=== PATIENT | female | born 1960 | race Caucasian/White ===

== ENCOUNTER → 2017-04-27 | Outpatient (CLI) | payer OTHER ==
--- NOTE | 2017-04-29 10:50 | MM ---
Reason for exam: screening (asymptomatic). History: Patient is postmenopausal. Physical Findings: A clinical breast exam by your physician is recommended on an annual basis and results should be correlated with mammographic findings. MG Screening Mammo w CAD Bilateral CC and MLO view(s) were taken. No prior studies available for comparison. Extensively greater in the right breast regional and possibly segmental calcifications are present. Magnification views can assess morphology of the calcifications. Asymmetric density also present central anterior right breast on the CC view. ASSESSMENT: Incomplete: need additional imaging evaluation, BI-RAD 0 RECOMMENDATION: Special view mammogram of both breasts. If lesion persists on supplemental views, image directed ultrasound is recommended. [facility] will attempt to contact patient to return for supplemental views and ultrasound if indicated.
== END | disposition home or self-care (01) ==
LOC: RADMAMWWP 10:48
PROVIDERS: ATTEND Family Medicine
DX: Z12.31 Encounter for screening mammogram for malignant neoplasm of breast (principal)
CPT/HCPCS: 87070

== ENCOUNTER → 2017-04-27 | Outpatient (CLI) | payer OTHER | END | disposition home or self-care (01) | LOC: LABPAT 10:46 | PROVIDERS: ATTEND Orthopaedic Surgery | DX: Z01.812 Encounter for preprocedural laboratory examination (principal); M16.12 Unilateral primary osteoarthritis, left hip | CPT/HCPCS: 87070 ==

== ENCOUNTER 2017-05-06 05:54 | Inpatient (IN) | payer OTHER ==
[2017-04-25 13:38] VITALS: BMI 32.8
--- NOTE | 2017-05-05 12:15 | HP ---
HISTORY AND PHYSICAL Surgery is 05/06/2017 Mary Miner is a 56-year-old patient seen with progressive left hip pain consistent with symptomatic advanced osteoarthritis. After treatment options were discussed with her she elected to proceed with left total hip arthroplasty. Consent was obtained. Medical clearance was provided by Dr. Ca. PAST MEDICAL HISTORY: Depression. PAST SURGICAL HISTORY: section. DAILY MEDICATIONS: Aleve, Wellbutrin, multiple [id number] vitamins. ALLERGIES: ERYTHROMYCIN, CLINDAMYCIN. CLARITHROMYCIN. SOCIAL HISTORY: Patient denies tobacco use. PHYSICAL EVALUATION OF THE LEFT HIP: There is limited range of motion with significant pain. There is positive hip impingement sign. Diffuse tenderness about the hip girdle. Straight leg raise is negative. Distal neurovascular exam is intact. Left hip radiographs revealed severe osteoarthritic changes. IMPRESSION: Left hip osteoarthritis. PLAN: Direct anterior left total hip arthroplasty. MMODL / IJN: [id number] /
[~2017-05-06 05:54] MED LIST: ACETAMINOPHEN TAB 500 MG TAB PO ONE; MELOXICAM 7.5 MG TAB PO ONE; TRANEXAMIC ACID 1,000 MG in SODIUM CHLORIDE 0.9% 100 ML IVPB ONE; ceFAZolin 2 GM in SODIUM CHLORIDE 0.9% 100 ML IVPB ONE
[2017-05-06] MEDS ORDERED: LIDOCAINE 1% 20 ML VIAL (10MG/ML) FOR IV START INTRADERMA PRN (05:56)
[2017-05-06] MEDS ORDERED: HYDROmorphone 0.5 MG/0.5 ML SYRINGE IVP PRN ×2 (05:56→09:59)
[2017-05-06] MEDS ORDERED: ONDANSETRON 4 MG/2 ML VIAL IVP ONE (05:56)
[2017-05-06] MEDS: LACTATED RINGERS 1,000 ML IV SCH ×4 (06:49→21:44)
[2017-05-06] MEDS ORDERED: ROPIVACAINE 246.25 MG, EPINEPHrine 0.5 MG, KETOROLAC 30 MG, cloNIDine HCL/PF 80 MCG, WA... MISCELLANE ONE ×5 (07:25)
[2017-05-06] MEDS ORDERED: MIDAZOLAM 2 MG/2 ML VIAL ONE (07:33)
[2017-05-06] MEDS ORDERED: TRANEXAMIC ACID 1,000 MG/10 ML VIAL ONE (07:33)
[2017-05-06] MEDS ORDERED: LIDOCAINE 1% INJ 10MG/ML (20 ML MDV) ONE (07:33)
[2017-05-06] MEDS ORDERED: ePHEDrine 50 MG/ML 1 ML AMP ONE (07:33)
[2017-05-06] MEDS ORDERED: fentaNYL (PF) 50 MCG/ML 2 ML AMP ONE (07:33)
[2017-05-06] MEDS ORDERED: PROPOFOL 10 MG/ML 20 ML VIAL IV ONE (07:33)
[2017-05-06] MEDS ORDERED: SODIUM CHLORIDE 0.9% 100 ML BAG ONE (07:33)
[2017-05-06] MEDS ORDERED: ROPIVACAINE 5 MG/ML 30 ML VIAL MISCELLANE ONE (08:17)
[2017-05-06] MEDS ORDERED: LACTATED RINGERS 1,000 ML IV ONE (09:20)
--- NOTE | 2017-05-06 09:51 | FL ---
EXAMINATION TYPE: FL guidance operating room, XR Hip Limited LT DATE OF EXAM: 05/06/2017 Findings: Single image shows left hip total arthroplasty. FLUOROSCOPY Fluoroscopy time of 13 seconds was used during anterior left hip replacement. 1 image/s document/s t he procedure. IMPRESSION: Intraoperative fluoroscopy for left hip total arthroplasty.
--- NOTE | 2017-05-06 09:58 | P.OP ---
Date of Procedure: 05/06/17 Preoperative Diagnosis: Left hip osteoarthritis Postoperative Diagnosis: Left hip osteoarthritis Procedure(s) Performed: Direct anterior left total hip arthroplasty Implants: 1. Depuy Corail press-fit femoral stem K a size 12 standard collar 2. Depuy pinnacle press-fit acetabular shell 54 mm 3. Depuy pinnacle polyethylene acetabular liner neutral 36 mm ID 54 mm OD 4. Biolox delta ceramic femoral head +1.5 36 mm Anesthesia: local, spinal Surgeon: Delmar Calles Orthopedic Shoe Maker #1: Hernán Dunham Estimated Blood Loss (ml): 400 Pathology: none sent (Femoral head) Condition: stable Disposition: PACU Indications for Procedure: 56-year-old patient seen with progressive left hip pain. After treatment options were discussed, she elected to proceed with direct anterior left total hip arthroplasty. Operative Findings: See description of procedure Description of Procedure: The patient was taken to the operative suite. Patient underwent a spinal anesthetic by the department of anesthesia. Patient was then transferred to the [place] table. Patient was given preoperative IV antibiotics and TXA. Both lower extremities were placed in standard leg spars. The hip was then prepped and draped in the normal sterile orthopedic fashion. A standard anterior incision was made beginning 3 cm lateral and 1 cm distal to the ASIS extending 10 cm. Dissection was then carried down through the subcutaneous soft tissues down to the fascia overlying the tensor fascia renay. An incision was now made through the fascia. Careful dissection was taken down exposing the tensor fascia renay muscle. A Cobra retractor was now placed along the medial femoral neck and a second one along the lateral femoral neck. The venous circumflex vessels were now identified, cauterized and clipped. We identified the anterior hip capsule. An incision was made through the hip capsule along the lateral border. Tag sutures were then placed along the anterior capsule and lateral capsule. We then performed a capsulotomy. Retractors were now placed around the femoral neck itself. A Cobra retractor was now placed along the anterior acetabulum. Good exposure was now noted of the femoral head/neck complex. Residual labrum was debrided out. We placed the extremity into 3 turns of fine traction. We were then able to introduce a skid in between the femoral head and acetabulum. A placed a awl into the femoral head. We took 2 turns of traction off the extremity. Rotation was now released. The femoral head was then dislocated without difficulty. Additional releasing was performed of the capsule. The head was then reduced. All traction was released. A femoral neck cut was now made with a sagittal saw. It was completed with an osteotome at the lateral neck area. The femoral head was now removed without difficulty. The extremity was now rotated to 60 of external rotation. It was locked in position. Residual labrum was now debrided out. Serial reaming was performed of the acetabulum. Once we reached the appropriate size and a trial was position and fit nicely. The appropriate size was now chosen opened and made available. It was introduced into the acetabulum without difficulty. The C-arm/fluoroscopy was now brought into the operative field. The wound was irrigated with pulse lavage mechanical irrigation We made sure we had a true AP pelvic view. We now under direct C-arm /fluoroscopy introduced into the acetabular component with appropriate version and inclination. It was well seated and stable. The C-arm was pulled back. An appropriate liner was introduced and clicked into position. It was felt to be stable. At this point retractors were removed. The extremity was now placed into 120 external rotation with no traction. The leg was now dropped to the ground and adducted. Appropriate retractors were now positioned along the proximal femur. We also placed our femoral look into position. Additional capsular releasing was performed to gain access to the proximal femur. We now used a box osteotome. A canal finder was now utilized. Serial broaching was now performed until we reached the appropriate size with good overall rotational stability. Appropriate calcar planing was performed. A trial head/ neck was placed into position. The hip was now reduced. The C-arm/fluoroscopy was brought back into the operative field. A spot film was obtained of the nonoperative hip. A spot film was obtained of the trial components. Overlays were performed, we noted good overall alignment and positioning for determining leg length. The C-arm/fluoroscopy was pulled back. Retractors were repositioned and the hip was dislocated. The leg was again taken down to the ground and adducted. Appropriate retractors were repositioned as well as the femoral hook. All trial components were removed. The femoral implant was opened along with the femoral head. The wound was irrigated with pulse lavage mechanical irrigation. The deep soft tissues were infiltrated local analgesic. The femoral implant was introduced with good purchase and fixation noted. The femoral head was introduced with good positioning and fixation noted. Retractors were now removed. The hip was now reduced. There appeared be good positioning of the hip. A spot film was obtained intraoperatively to document the procedure. The wound was irrigated with pulse lavage mechanical irrigation. The superficial soft tissues were infiltrated local analgesic. Bipolar cautery had been utilized intermittently through the procedure for hemostasis. The wound was irrigated copiously with pulse lavage mechanical irrigation. The fascia was repaired with Vicryl suture. The subcutaneous soft tissues were repaired in layers with Vicryl suture. The skin was approximated with pernio/Dermabond. Sterile dressings were applied. Patient was then awakened, transferred to a bed and taken to recovery in stable condition. Anuj WATSON assisted with the procedure.
[2017-05-06] MEDS ORDERED: NALOXONE 0.4 MG/ML 1 ML VIAL IV PRN (09:59)
[2017-05-06] MEDS ORDERED: ONDANSETRON 4 MG/2 ML VIAL IVP PRN (09:59)
[2017-05-06] MEDS ORDERED: HYDROcodone/APAP 7.5-325MG 1 EACH TAB PO PRN (09:59)
[2017-05-06] MEDS ORDERED: HYDROmorphone 1 MG/ML 1 ML SYRINGE IVP PRN (09:59)
[2017-05-06] MEDS: HYDROcodone/APAP 7.5-325MG 1 EACH TAB PO PRN ×2 (12:40→17:48)
[2017-05-06] MEDS: HYDROmorphone 0.5 MG/0.5 ML SYRINGE IVP PRN ×2 (14:38→22:42)
--- NOTE | 2017-05-06 14:46 | P.CONS ---
History of Present Illness - Reason for Consult Consult date: 05/06/17 Medical management Requesting physician: Delmar Calles - Chief Complaint Status post left total hip arthroplasty - History of Present Illness This is a 56-year-old female, patient of [facility]. She has a known past medical history of depression and osteoarthritis. She underwent direct anterior left total hip arthroplasty today. Patient tolerated surgery well with no complications. Estimated blood loss 400 mL. Patient reports that pain is not fully controlled. Patient reporting that her pain is still between a 5 and 6 out of 10 after receiving the pain pill. Patient is receiving an IV dose of Dilaudid now. She's also complaining of muscle spasming was near her incision site. Valium will be ordered. Patient denies any chest pain or shortness of breath. Denies any nausea or vomiting. Denies any bowel movement changes or urinary symptoms. We have been consulted for medical management. Review of Systems Please refer to HPI otherwise unremarkable Past Medical History Past Medical History: Osteoarthritis (OA), Sleep Apnea/CPAP/BIPAP Additional Past Medical History / Comment(s): VERTIGO, SLEEP APNEA (NO MACHINE) , TOE NAIL FUNGUS RESOLVING. History of Any Multi-Drug Resistant Organisms: None Reported Past Surgical History: Section Additional Past Surgical History / Comment(s): LIPOMA REMOVED Past Anesthesia/Blood Transfusion Reactions: No Reported Reaction Additional Past Anesthesia/Blood Transfusion Reaction / Comm: PT ADOPTED-UNSURE OF FAMILY HX. Past Psychological History: Depression Smoking Status: Former smoker Past Alcohol Use History: None Reported Additional Past Alcohol Use History / Comment(s): QUIT SMOKING AUG 1996. SMOKED FOR 20 YEARS , 1/2 PPD. Past Drug Use History: None Reported - Past Family History Mother Family Medical History: Unable to Obtain Additional Family Medical History / Comment(s): ADOPTED Medications and Allergies Home Medications Medication Instructions Recorded Confirmed Type Ascorbic Acid [Vitamin C] 1,000 mg PO HS 04/25/17 05/06/17 History Biotin 5,000 mcg PO DAILY 04/25/17 05/06/17 History Cholecalciferol [Vitamin D3] 5,000 unit PO HS 04/25/17 05/06/17 History Cyanocobalamin (Vitamin B-12) 3,000 mcg PO DAILY 04/25/17 05/06/17 History [Vitamin B-12] FLUoxetine HCL [PROzac] 10 mg PO DAILY 04/25/17 05/06/17 History Ferrous Sulfate [Feosol] 325 mg PO HS 04/25/17 05/06/17 History Fish Oil/Dha/Epa [Fish Oil 1,200 1 cap PO DAILY 04/25/17 05/06/17 History mg Fish Oil] Fluticasone Nasal Morrison [Flonase 1 spray EA NOSTRIL BID 04/25/17 05/06/17 History Nasal Morrison] Magnesium 400 mg PO HS 04/25/17 05/06/17 History Multivit with Calcium,Iron,Min 1 tab PO DAILY 04/25/17 05/06/17 History [Women's Multivitamin] Naproxen Sodium [Aleve] 440 mg PO BID PRN 04/25/17 05/06/17 History Terbinafine HCl [LamISIL] 250 mg PO DAILY@1900 04/25/17 05/06/17 History buPROPion HCL [buPROPion HCL SR] 150 mg PO BID 04/25/17 05/06/17 History traZODone HCL 50 mg PO HS 04/25/17 05/06/17 History Allergies Allergy/AdvReac Type Severity Reaction Status Date / Time clindamycin Allergy Severe Rash/Hives, Verified 05/06/17 10:18 Swelling, Itching erythromycin base Allergy Severe Rash/Hives, Verified 05/06/17 10:18 swelling, itching mycin antibiotics Allergy Unknown Rash/Hives, Uncoded 05/06/17 06:14 Swelling, Itching Physical Exam Vitals: Vital Signs Temp Pulse Pulse Pulse Resp BP BP 05/06/17 13:45 66 114/60 05/06/17 13:15 80 120/69 05/06/17 12:45 76 97/61 05/06/17 12:30 67 102/57 05/06/17 12:15 64 105/55 05/06/17 12:00 60 104/57 05/06/17 11:45 97.5 F L 67 16 105/59 05/06/17 10:59 64 16 112/60 05/06/17 10:44 62 16 114/61 05/06/17 10:29 60 16 122/59 05/06/17 10:14 97.4 F L 64 16 125/56 05/06/17 06:36 98.2 F 76 18 146/77 Pulse Ox 05/06/17 13:45 05/06/17 13:15 05/06/17 12:45 05/06/17 12:30 05/06/17 12:15 05/06/17 12:00 05/06/17 11:45 99 05/06/17 10:59 98 05/06/17 10:44 99 05/06/17 10:29 99 05/06/17 10:14 98 05/06/17 06:36 94 L Intake and Output 05/05/17 05/06/17 05/06/17 22:59 06:59 14:59 Intake Total 1950 Output Total 600 Balance 1350 Intake: IV 1950 Output: Urine 200 Estimated Blood Loss 400 Other: Voiding Method Indwelling Catheter Weight 89.358 kg Patient Weight 05/07/17 06:59 Weight 89.358 kg Head normocephalic Neck supple Lungs clear to auscultation bilaterally no wheezing or crackles Heart regular rate and rhythm S1-S2, no rub or gallop Abdomen is soft nontender nondistended positive bowel sounds no hepatosplenomegaly Extremities no edema. Dressing is clean dry and intact. Patient is able to wiggle her toes. No numbness noted per patient Neuro alert and orientated to 3 Assessment and Plan Plan: 1. Left hip osteoarthritis: Status post direct anterior left total hip arthroplasty. Estimated blood loss 400 mL. Continue pain medication per orthopedic protocol. We will add Valium 2 mg by mouth twice a day as needed for muscle spasming. Continue the Lovenox for DVT prophylaxis 2. History of depression continue the Wellbutrin and trazodone 3. Former history of smoking GI prophylaxis Pepcid and DVT prophylaxis Lovenox Thank you for this consultation we will continue to follow along with you Time with Patient: Greater than 30 (Greater than 50% of the total time spent in counseling and coordination of care.I performed an examination of the patient and discussed their management with the physician School Transportation Director. I have reviewed the Physician School Transportation Director's notes and agree with the documented findings and plan of care)
[2017-05-06] MEDS: traMADol 50 MG TAB PO SCH ×3 (16:33→21:10)
[2017-05-06] MEDS: ceFAZolin 2 GM in SODIUM CHLORIDE 0.9% 100 ML IVPB SCH ×2 (17:01→22:42)
[2017-05-06] MEDS: hydrOXYzine PAMOATE 25 MG CAP PO PRN (17:48)
[2017-05-06] MEDS: DIAZEPAM 2 MG TAB PO PRN (19:16)
[2017-05-06] MEDS: SENNOSIDES-DOCUSATE SODIUM 1 EACH TAB PO SCH (20:21)
[2017-05-06] MEDS: MAGNESIUM OXIDE 400 MG TAB PO SCH (20:22)
[2017-05-06] MEDS: TERBINAFINE 250 MG TAB PO SCH (20:22)
[2017-05-06] MEDS: ASCORBIC ACID 500 MG TAB PO SCH (20:22)
[2017-05-06] MEDS: traZODone HCL 50 MG TAB PO SCH (20:22)
[2017-05-06] MEDS: FLUTICASONE 50MCG/SPRAY NASAL 16GM EA NOSTRIL SCH (20:23)
[2017-05-06] MEDS: CHOLECALCIFEROL 1,000 UNIT TAB PO SCH (20:23)
[2017-05-06] MEDS: buPROPion SR 150 MG TABLET.ER PO SCH (20:23)
[2017-05-06] MEDS ORDERED: FERROUS SULFATE 325 MG TAB PO SCH (21:00)
[2017-05-07] MEDS: hydrOXYzine PAMOATE 25 MG CAP PO PRN ×2 (04:51→10:21)
[2017-05-07] MEDS: HYDROcodone/APAP 7.5-325MG 1 EACH TAB PO PRN ×3 (04:51→15:51)
[2017-05-07] MEDS: LACTATED RINGERS 1,000 ML IV SCH ×2 (05:44→05:45)
[2017-05-07 08:08] LABS: Basophils % (A) 0 %; CH 29.4; CHCM 31.5; Eosinophils % (A) 0 %; HCT 30.6 % (34.0-46.0); HDW 2.27; HGB 9.4 gm/dL (11.4-16.0); Luc # (Auto) 0.09; Luc % (Auto) 1; Lymphocytes # (A) 0.7 k/uL (1.0-4.8); Lymphocytes % (A) 9 %; MCH 28.9 pg (25.0-35.0); MCHC 30.9 g/dL (31.0-37.0); MCV 93.7 fL (80.0-100.0); Mean Platelet Volume 7.4; Monocytes # (A) 0.4 k/uL (0-1.0); Monocytes % (A) 6 %; Neutrophils # (A) 6.2 k/uL (1.3-7.7); Neutrophils % (A) 84 %; RBC 3.27 m/uL (3.80-5.40); WBC 7.4 k/uL (3.8-10.6); WBC (Perox) 7.74
[2017-05-07 08:13] LABS: ALT 35 U/L (9-52); AST 46 U/L (14-36); Alkaline Phosphatase 83 U/L (38-126); Anion Gap 5 mmol/L; Blood Urea Nitrogen 11 mg/dL (7-17); Calcium 8.1 mg/dL (8.4-10.2); Carbon Dioxide 23 mmol/L (22-30); Chloride 108 mmol/L (98-107); Glucose 104 mg/dL (74-99); Non-African American GFR(MDRD) >60 (>60 ml/min/1.73 sqM); Potassium 4.5 mmol/L (3.5-5.1); Sodium 136 mmol/L (137-145); Total Bilirubin 0.2 mg/dL (0.2-1.3); Total Protein 5.4 g/dL (6.3-8.2)
[2017-05-07] MEDS: traMADol 50 MG TAB PO SCH ×4 (08:31→21:44)
[2017-05-07] MEDS: MELOXICAM 7.5 MG TAB PO SCH (08:32)
[2017-05-07] MEDS: buPROPion SR 150 MG TABLET.ER PO SCH ×2 (08:32→21:44)
[2017-05-07] MEDS: ENOXAPARIN 40 MG/0.4 ML SYRINGE SQ SCH (08:32)
[2017-05-07] MEDS: FAMOTIDINE 20 MG TAB PO SCH (08:33)
[2017-05-07] MEDS: CYANOCOBALAMIN 500 MCG TAB PO SCH (08:33)
[2017-05-07] MEDS: FLUoxetine HCL 10 MG CAP PO SCH (08:33)
[2017-05-07] MEDS: MULTIVITAMINS, THERA 1 EACH TAB PO SCH (08:33)
[2017-05-07] MEDS ORDERED: NON-FORMULARY DRUG (Fish Oil/Dha/Epa [Fish Oil 1,200 Mg Fish Oil] 1 CAP) PO SCH (09:00)
[2017-05-07] MEDS ORDERED: NON-FORMULARY DRUG (Biotin [Biotin] 5,000 MCG) PO SCH (09:00)
[2017-05-07] MEDS: FLUTICASONE 50MCG/SPRAY NASAL 16GM EA NOSTRIL SCH ×2 (10:13→21:47)
--- NOTE | 2017-05-07 11:10 | P.PN ---
Subjective Progress Note Date: 05/07/17 This is a 56-year-old female, patient of [facility]. She has a known past medical history of depression and osteoarthritis. She underwent direct anterior left total hip arthroplasty today. Patient tolerated surgery well with no complications. Estimated blood loss 400 mL. Patient reports that pain is not fully controlled. Patient reporting that her pain is still between a 5 and 6 out of 10 after receiving the pain pill. Patient is receiving an IV dose of Dilaudid now. She's also complaining of muscle spasming was near her incision site. Valium will be ordered. Patient denies any chest pain or shortness of breath. Denies any nausea or vomiting. Denies any bowel movement changes or urinary symptoms. We have been consulted for medical management. 05/07/2017 patient sitting in bedside chair. Still having some issues with pain. Pain medication is being adjusted. Muscle spasming has improved. Did not have much improvement with the Valium. Her hemoglobin is down to 9.4 hemoglobin postop was 12.5 and that was on 04/22/2017. Patient denies any chest pain or shortness of breath. Denies any nausea or vomiting. Denies any difficulty with urinating. Catheter was removed this morning. She is passing gas no bowel movement yet. Anticipating discharge either later today or tomorrow Objective - Vital Signs Vital signs: Vital Signs Temp 99.1 F 05/07/17 07:00 Pulse 95 05/07/17 07:00 Resp 16 05/07/17 07:00 BP 91/51 05/07/17 07:00 Pulse Ox 94 L 05/07/17 07:00 Intake & Output 05/06/17 05/07/17 05/07/17 18:59 06:59 18:59 Intake Total 1950 1600 Output Total 1000 1400 Balance 950 200 Weight 89.358 kg Intake: IV 1950 Intake, IV Titration 1600 Amount Lactated Ringers 1,000 ml 1600 @ 100 mls/hr IV .Q10H SAROJ Rx#:[id number] Output: Urine 600 1400 Uretheral (Massey) 1400 Estimated Blood Loss 400 Other: Voiding Method Indwelling Catheter - Exam Head normocephalic Neck supple Lungs clear to auscultation bilaterally no wheezing or crackles Heart regular rate and rhythm S1-S2, no rub or gallop Abdomen is soft nontender nondistended positive bowel sounds no hepatosplenomegaly Extremities no edema Neuro alert and orientated to 3 - Labs CBC & Chem 7: 05/07/17 07:06 05/07/17 07:06 Labs: Abnormal Lab Results - Last 24 Hours (Table) 05/07/17 05/07/17 Range/Units 07:06 07:06 RBC 3.27 L (3.80-5.40) m/uL Hgb 9.4 L (11.4-16.0) gm/dL Hct 30.6 L (34.0-46.0) % MCHC 30.9 L (31.0-37.0) g/dL Lymphocytes # 0.7 L (1.0-4.8) k/uL Sodium 136 L (137-145) mmol/L Chloride 108 H (98-107) mmol/L Glucose 104 H (74-99) mg/dL Calcium 8.1 L (8.4-10.2) mg/dL AST 46 H (14-36) U/L Total Protein 5.4 L (6.3-8.2) g/dL Albumin 2.8 L (3.5-5.0) g/dL Assessment and Plan Plan: 1. Left hip osteoarthritis: Status post direct anterior left total hip arthroplasty. Estimated blood loss 400 mL. Continue pain medication per orthopedic protocol. We will add Valium 2 mg by mouth twice a day as needed for muscle spasming. Continue the Lovenox for DVT prophylaxis 2. History of depression continue the Wellbutrin and trazodone 3. Former history of smoking 4. Acute blood loss anemia expected after surgery. Estimated blood loss was 400 mL. We'll increase patient's iron to 325 mg twice a day. Repeat CBC in a.m. GI prophylaxis Pepcid and DVT prophylaxis Lovenox I performed an examination of the patient and discussed their management with the physician Executive Director [employer]. I have reviewed the Physician Executive Director [employer]'s notes and agree with the documented findings and plan of care
[2017-05-07] MEDS: DIAZEPAM 2 MG TAB PO PRN (11:45)
--- NOTE | 2017-05-07 14:10 | P.PN ---
Subjective Progress Note Date: 05/07/17 Principal diagnosis: Status post left total hip arthroplasty Patient is seen today resting in her hospital bed. She is having some increasing pain in the hip, she also is very tired today. She was able to ambulate minimally with therapy. She denies any headaches, chest pain, shortness of breath, or chills. Objective - Vital Signs Vital signs: Vital Signs Temp 99.1 F 05/07/17 07:00 Pulse 95 05/07/17 07:00 Resp 16 05/07/17 07:00 BP 91/51 05/07/17 07:00 Pulse Ox 94 L 05/07/17 07:00 Intake & Output 05/06/17 05/07/17 05/07/17 18:59 06:59 18:59 Intake Total 1950 1600 Output Total 1000 1400 Balance 950 200 Weight 89.358 kg Intake: IV 1950 Intake, IV Titration 1600 Amount Lactated Ringers 1,000 ml 1600 @ 100 mls/hr IV .Q10H SAROJ Rx#:[id number] Output: Urine 600 1400 Uretheral (Massey) 1400 Estimated Blood Loss 400 Other: Voiding Method Indwelling Catheter - Exam Left lower extremity: Incision is clean, dry, and intact. The prineo tape is in good condition. There is minimal soft tissue swelling and ecchymosis surrounding the medial and lateral aspects of the incision. Calf is soft, no tenderness with palpation. Plantar flexion, dorsiflexion, EHL, FHL are intact. Sensory exam to light touch throughout the extremity is intact, dorsal pedis pulses 2+. - Labs CBC & Chem 7: 05/07/17 07:06 05/07/17 07:06 Labs: Abnormal Lab Results - Last 24 Hours (Table) 05/07/17 05/07/17 Range/Units 07:06 07:06 RBC 3.27 L (3.80-5.40) m/uL Hgb 9.4 L (11.4-16.0) gm/dL Hct 30.6 L (34.0-46.0) % MCHC 30.9 L (31.0-37.0) g/dL Lymphocytes # 0.7 L (1.0-4.8) k/uL Sodium 136 L (137-145) mmol/L Chloride 108 H (98-107) mmol/L Glucose 104 H (74-99) mg/dL Calcium 8.1 L (8.4-10.2) mg/dL AST 46 H (14-36) U/L Total Protein 5.4 L (6.3-8.2) g/dL Albumin 2.8 L (3.5-5.0) g/dL Assessment and Plan Plan: Assessment: 1. Postop day #1 status post left total hip arthroplasty X Plan: 1. Pain control, continue use of oral medication 2. Continue work with therapy 3. Daily dressing changes/ice hip region 4. Medical recommendations 5. GI and DVT prophylaxis, continue subcu medication 6. Discharge planning: Patient likely to be discharged home tomorrow Time with Patient: Less than 30
[2017-05-07] MEDS: traZODone HCL 50 MG TAB PO SCH (21:44)
[2017-05-07] MEDS: SENNOSIDES-DOCUSATE SODIUM 1 EACH TAB PO SCH (21:44)
[2017-05-07] MEDS: TERBINAFINE 250 MG TAB PO SCH (21:44)
[2017-05-07] MEDS: ASCORBIC ACID 500 MG TAB PO SCH (21:47)
[2017-05-07] MEDS: MAGNESIUM OXIDE 400 MG TAB PO SCH (21:47)
[2017-05-07] MEDS: FERROUS SULFATE 325 MG TAB PO SCH (21:47)
[2017-05-07] MEDS: CHOLECALCIFEROL 1,000 UNIT TAB PO SCH (21:47)
[2017-05-08 07:19] LABS: Basophils % (A) 0 %; CH 29.3; CHCM 31.6; Eosinophils % (A) 0 %; HCT 29.8 % (34.0-46.0); HDW 2.29; HGB 9.3 gm/dL (11.4-16.0); Luc # (Auto) 0.17; Luc % (Auto) 2; Lymphocytes # (A) 1.1 k/uL (1.0-4.8); Lymphocytes % (A) 13 %; MCH 29.1 pg (25.0-35.0); MCHC 31.3 g/dL (31.0-37.0); MCV 93.2 fL (80.0-100.0); Mean Platelet Volume 7.3; Monocytes # (A) 0.6 k/uL (0-1.0); Monocytes % (A) 7 %; Neutrophils # (A) 6.6 k/uL (1.3-7.7); Neutrophils % (A) 77 %; RDW 11.9 % (11.5-15.5); WBC 8.6 k/uL (3.8-10.6); WBC (Perox) 8.86
[2017-05-08 07:25] LABS: ALT 51 U/L (9-52); AST 64 U/L (14-36); Alkaline Phosphatase 92 U/L (38-126); Anion Gap 7 mmol/L; Blood Urea Nitrogen 9 mg/dL (7-17); Calcium 8.3 mg/dL (8.4-10.2); Carbon Dioxide 26 mmol/L (22-30); Chloride 105 mmol/L (98-107); Glucose 94 mg/dL (74-99); Non-African American GFR(MDRD) >60 (>60 ml/min/1.73 sqM); Potassium 3.9 mmol/L (3.5-5.1); Sodium 138 mmol/L (137-145); Total Bilirubin 0.3 mg/dL (0.2-1.3); Total Protein 5.6 g/dL (6.3-8.2)
[2017-05-08] MEDS: HYDROcodone/APAP 7.5-325MG 1 EACH TAB PO PRN ×2 (07:55→14:29)
[2017-05-08] MEDS: traMADol 50 MG TAB PO SCH (08:59)
[2017-05-08] MEDS: ENOXAPARIN 40 MG/0.4 ML SYRINGE SQ SCH (08:59)
[2017-05-08] MEDS: buPROPion SR 150 MG TABLET.ER PO SCH (08:59)
[2017-05-08] MEDS: FERROUS SULFATE 325 MG TAB PO SCH (09:00)
[2017-05-08] MEDS: MELOXICAM 7.5 MG TAB PO SCH (09:00)
[2017-05-08] MEDS: FAMOTIDINE 20 MG TAB PO SCH (09:00)
[2017-05-08] MEDS: CYANOCOBALAMIN 500 MCG TAB PO SCH (09:01)
[2017-05-08] MEDS: MULTIVITAMINS, THERA 1 EACH TAB PO SCH (09:01)
[2017-05-08] MEDS: FLUTICASONE 50MCG/SPRAY NASAL 16GM EA NOSTRIL SCH (09:01)
[2017-05-08 09:56] VITALS: BP 119/74; PULSE 92; RESP 18; TEMP 98.3
[2017-05-08] MEDS: FLUoxetine HCL 10 MG CAP PO SCH (10:34)
== END 2017-05-08 14:49 | disposition home health service (06) | DRG 470 ==
LOC: 2ORMAIN 05:54 → 3SUR 10:11
PROVIDERS: ADMIT Orthopaedic Surgery; ATTEND Orthopaedic Surgery
PROC: 0SRB04A Replacement of Left Hip Joint with Ceramic on Polyethylene Synthetic Substitute, Uncemented, Open Approach (ICD-10-PCS; principal; 2017-05-06 07:30)
DX: M16.12 Unilateral primary osteoarthritis, left hip (principal); D62 Acute posthemorrhagic anemia; F32.9 Major depressive disorder, single episode, unspecified; G47.30 Sleep apnea, unspecified; Z79.899 Other long term (current) drug therapy; Z87.891 Personal history of nicotine dependence; Z88.1 Allergy status to other antibiotic agents; Z79.51 Long term (current) use of inhaled steroids
CPT/HCPCS: 36415; 73501; 80053; 85025; 86850; 86900; 86901; 88300

== ENCOUNTER → 2018-01-10 | Outpatient (CLI) | payer OTHER ==
[2018-01-10 14:49] LABS: Basophils % (A) 1 %; Eosinophils # (A) 0.2 k/uL (0-0.7); Eosinophils % (A) 4 %; HCT 41.5 % (34.0-46.0); HGB 13.7 gm/dL (11.4-16.0); Lymphocytes # (A) 1.5 k/uL (1.0-4.8); Lymphocytes % (A) 28 %; MCH 29.5 pg (25.0-35.0); MCHC 33.1 g/dL (31.0-37.0); Mean Platelet Volume 6.7; Monocytes # (A) 0.4 k/uL (0-1.0); Monocytes % (A) 7 %; Neutrophils # (A) 3.1 k/uL (1.3-7.7); Neutrophils % (A) 59 %; Platelet Count 326 k/uL (150-450); RBC 4.66 m/uL (3.80-5.40); RDW 12.6 % (11.5-15.5); WBC 5.3 k/uL (3.8-10.6)
[2018-01-10 14:55] LABS: Potassium 4.8 mmol/L (3.5-5.1)
[2018-01-10 15:02] LABS: Prothrombin Time 9.8 sec (9.0-12.0)
== END | disposition home or self-care (01) ==
LOC: LABPAT 12:53
PROVIDERS: ATTEND Orthopaedic Surgery
DX: Z01.812 Encounter for preprocedural laboratory examination (principal); M17.11 Unilateral primary osteoarthritis, right knee; R53.83 Other fatigue; Z79.01 Long term (current) use of anticoagulants
CPT/HCPCS: 36415; 80051; 85025; 85610; 87070

== ENCOUNTER 2018-02-03 09:33 | Inpatient (IN) | payer OTHER ==
[2018-01-24 13:22] VITALS: BMI 33.6
--- NOTE | 2018-02-02 09:23 | HP ---
HISTORY AND PHYSICAL DATE OF SERVICE: 02/03/2018. HISTORY: Mary Miner is a 57-year-old patient seen with symptomatic right knee osteoarthritis. Treatment options were discussed. She elected to proceed with right total knee arthroplasty. Consent regarding the procedure was obtained. Medical clearance was provided by Dr. Ca. PAST MEDICAL HISTORY: Depression. PAST SURGICAL HISTORY: section. MEDICATIONS: Prozac, trazodone, Wellbutrin, multivitamins. ALLERGIES: Erythromycin, clindamycin, clarithromycin. SOCIAL HISTORY: Patient denies tobacco use. PHYSICAL EXAMINATION: Evaluation of the right knee, range of motion is -3 to 115 degrees. Tenderness medial joint line. Crepitus medial and patellofemoral compartments with range of motion. Pain with patellofemoral compression. Ligaments are stable. Hip rotation without pain. Distal neurovascular exam intact. RADIOGRAPHS: Radiographs of the right knee reveal severe medial and moderate patellofemoral compartment osteoarthritis. IMPRESSION: 1. Right knee osteoarthritis. 2. Depression. PLAN: Right total knee arthroplasty. MMODL / IJN: [id number] /
[~2018-02-03 09:33] MED LIST changes: +HYDROmorphone 0.5 MG/0.5 ML SYRINGE IVP PRN; +LIDOCAINE 1% 20 ML VIAL (10MG/ML) FOR IV START INTRADERMA PRN; +ONDANSETRON 4 MG/2 ML VIAL IVP ONE; -TRANEXAMIC ACID 1,000 MG in SODIUM CHLORIDE 0.9% 100 ML IVPB ONE; +TRANEXAMIC ACID 1,000 MG in SODIUM CHLORIDE 0.9% 50 ML IVPB ONE; -ceFAZolin 2 GM in SODIUM CHLORIDE 0.9% 100 ML IVPB ONE; +ceFAZolin IN SWFI 2 GM/20 ML SYRINGE IVP ONE
[2018-02-03] MEDS: LACTATED RINGERS 1,000 ML IV SCH ×3 (12:05→20:22)
[2018-02-03] MEDS ORDERED: MIDAZOLAM 2 MG/2 ML VIAL ONE (12:19)
[2018-02-03] MEDS ORDERED: ROPIVACAINE 246.25 MG, EPINEPHrine 0.5 MG, KETOROLAC 30 MG, cloNIDine HCL/PF 80 MCG, WA... MISCELLANE ONE ×5 (12:21)
[2018-02-03] MEDS ORDERED: ROPIVACAINE 1,100 MG, SODIUM CHLORIDE 0.9% 330 ML MISCELLANE PRN ×2 (12:23)
--- NOTE | 2018-02-03 13:12 | P.ONQ ---
Anesthesiology Proc Note - PNB - Peripheral Nerve Block Performed Right Adductor Canal Infusion Time Out Performed: Yes (2002) Procedure Start Time: 12:32 Procedure Stop Time: 12:42 Indication: Acute Post-Operative Pain, Dx/Pain Location (Right Knee Pain), Requested by physician Sedation Type: Sedate with meaningful contact maintained Preparation: Sterile Prep Position: Supine Catheter: Indwelling Needle Types: On-Q Needle Size: 100mm (4") Needle Gauge: 21 Technique: Ultrasound Injectate: 0.5% Ropivacaine (see comment for volume) (20ml) Blood Aspirated: No Pain Paresthesia on Injection Noted: No Resistance on Injection: Normal Events: Uneventful and Well Tolerated
[2018-02-03] MEDS ORDERED: ceFAZolin 3,000 MG in SODIUM CHLORIDE 0.9% IRRIGATIO 3,000 ML IRRIGATION ONE (13:46)
[2018-02-03] MEDS ORDERED: LACTATED RINGERS 1,000 ML IV ONE (14:29)
--- NOTE | 2018-02-03 15:20 | P.OP ---
Date of Procedure: 02/03/18 Preoperative Diagnosis: Right knee osteoarthritis Postoperative Diagnosis: Right knee osteoarthritis Procedure(s) Performed: Right total knee arthroplasty Implants: 1. Depuy attune size 6 narrow cruciate retaining right cemented femur 2. Depuy attune size 5 right fixed bearing cemented tibial baseplate 3. Depuy attune size 6 8 mm fixed bearing cruciate retaining polyethylene tibial insert 4. Depuy attune 38 mm all polyethylene cemented patella Anesthesia: regional (Adductor canal catheter), local, spinal Surgeon: Delmar Calles Bridge Welder #1: Hernán Dunham Estimated Blood Loss (ml): 50 Pathology: other Condition: stable Disposition: PACU Indications for Procedure: 57-year-old patient seen with symptomatic right knee osteoarthritis. After treatment options were discussed, she elected to proceed with total knee arthroplasty. Operative Findings: see description of procedure Description of Procedure: Patient was taken to the operative after having an adductor canal catheter placed by the department of anesthesia. Patient underwent a spinal anesthetic by the department of anesthesia. Patient was given preoperative IV intake antibiotics and TXA. A well-padded tourniquet was placed about the right lower extremity. The lower extremity was then prepped and draped in the normal sterile orthopedic fashion. The extremity was elevated, a tourniquet was insufflated to 300. A standard anterior incision was made sharply through skin. Dissection was taken down through the subcutaneous soft tissues down to the extensor mechanism. A medial arthrotomy was performed, patella was everted and knee was flexed. There was advanced osteoarthritis noted. A proximal tibial cutting guide was positioned. Proximal tibial cut was made. A distal intramedullary femoral cutting guide was positioned, distal femoral cut made. We placed the appropriate sizing guide and selected the appropriate size. A distal 4-in-1 femoral cutting block was positioned, distal femoral cuts were made. We now placed a trial femoral component into position, along with an appropriate size tibial tray and insert. We now took the knee through range of motion and had full extension good flexion and good overall soft tissue balance noted. The patella was everted and a flush cut made with patellar quad tendon. We templated the patella, appropriate drill holes were made. An appropriate trial patella was positioned, knee was taken through full range of motion with the patella tracking very nicely. The trial patella was removed. Drill holes were made through the femoral component. All trial components were removed after marking off the appropriate rotation of the tibia. Retractors were now positioned along the proximal tibia. An appropriate keel punch was made with the appropriate size tibial guide. At this point appropriate size implants were chosen and opened. The joint was irrigated copiously with pulse lavage mechanical irrigation. The deep soft tissues and posterior capsule was infiltrated with local analgesic. We mixed antibiotic methylmethacrylate. Once the methyl methacrylate was ready, the tibial component was cemented into place removing any excess methylmethacrylate. The femoral component was cemented into place removing the removing any excess methylmethacrylate. We then inserted the appropriate size polyethylene tibial insert. We made sure that it was locked into position. We took the knee into full extension, and then back in a flexion making sure we had removed any excess methylmethacrylate. The patellar component was then cemented down and secured with clamp. Excess methylmethacrylate removed. We kept the knee in full extension, patellar clamp in position until methylmethacrylate had hardened. Once it had hardened the patellar clamp was removed. The knee was taken through full range of motion. The patella tracked nicely. There was good soft tissue balancing. The tourniquet was now released. Additional hemostasis was achieved via electrocautery. A second gram of TXA was given. The superficial soft tissues were infiltrated local analgesic. The wound was irrigated with pulse lavage mechanical irrigation. The extensor mechanism was repaired with Vicryl. We checked the repair with range of motion and it was stable. The subcutaneous soft tissues were repaired with Vicryl in layers. The skin was approximated with pernio/Dermabond. Sterile dressings were applied followed by loose web roll and Mike bandage. The patient was transferred to a bed, and taken to recovery in stable and satisfactory condition. Anuj WATSON assisted with the procedure.
[2018-02-03] MEDS ORDERED: ONDANSETRON 4 MG/2 ML VIAL IVP PRN (15:21)
[2018-02-03] MEDS ORDERED: HYDROcodone/APAP 7.5-325MG 1 EACH TAB PO PRN (15:21)
[2018-02-03] MEDS ORDERED: NALOXONE 0.4 MG/ML 1 ML VIAL IV PRN (15:21)
[2018-02-03] MEDS ORDERED: hydrOXYzine PAMOATE 25 MG CAP PO PRN (15:21)
[2018-02-03] MEDS ORDERED: HYDROmorphone 0.5 MG/0.5 ML SYRINGE IVP PRN ×2 (15:21)
--- NOTE | 2018-02-03 16:15 | XR ---
EXAMINATION TYPE: XR knee limited RT DATE OF EXAM: 02/03/2018 CLINICAL HISTORY: Right knee pain and arthritis status post total knee replacement. TECHNIQUE: Portable AP and crosstable lateral views of the right knee are obtained immediately posto peratively. COMPARISON: None FINDINGS: Metallic hardware from total right knee arthroplasty is seen and appears satisfactory in a lignment and position. There is evidence of recent surgery with diffuse subcutaneous gas and soft ti ssue swelling noted. IMPRESSION: METALLIC HARDWARE FROM TOTAL RIGHT KNEE ARTHROPLASTY IS SATISFACTORY IN ALIGNMENT.
[2018-02-03] MEDS: traMADol 50 MG TAB PO SCH ×2 (18:17→22:29)
[2018-02-03] MEDS: HYDROmorphone 0.5 MG/0.5 ML SYRINGE IVP PRN (20:22)
[2018-02-03] MEDS: SENNOSIDES-DOCUSATE SODIUM 1 EACH TAB PO SCH (20:23)
[2018-02-03] MEDS: ceFAZolin IN SWFI 2 GM/20 ML SYRINGE IVP SCH (20:23)
[2018-02-03] MEDS: HYDROcodone/APAP 7.5-325MG 1 EACH TAB PO PRN (22:27)
[2018-02-03] MEDS ORDERED: NON-FORMULARY DRUG (Naproxen Sodium 220 MG) PO PRN (23:39)
[2018-02-03] MEDS: buPROPion SR 150 MG TABLET.ER PO SCH (23:59)
[2018-02-03] MEDS: traZODone HCL 50 MG TAB PO SCH (23:59)
[2018-02-04] MEDS: ceFAZolin IN SWFI 2 GM/20 ML SYRINGE IVP SCH (05:03)
[2018-02-04] MEDS: HYDROcodone/APAP 7.5-325MG 1 EACH TAB PO PRN ×3 (05:03→20:51)
[2018-02-04] MEDS: LACTATED RINGERS 1,000 ML IV SCH ×2 (07:03→16:04)
[2018-02-04] MEDS: HYDROmorphone 0.5 MG/0.5 ML SYRINGE IVP PRN ×2 (07:03→15:52)
[2018-02-04 07:47] LABS: Basophils % (A) 0 %; Eosinophils % (A) 0 %; HCT 35.7 % (34.0-46.0); HGB 11.6 gm/dL (11.4-16.0); Lymphocytes % (A) 9 %; MCH 29.1 pg (25.0-35.0); MCHC 32.5 g/dL (31.0-37.0); MCV 89.4 fL (80.0-100.0); Mean Platelet Volume 7.1; Monocytes # (A) 0.8 k/uL (0-1.0); Monocytes % (A) 7 %; Neutrophils # (A) 8.9 k/uL (1.3-7.7); Neutrophils % (A) 83 %; Platelet Count 262 k/uL (150-450); RBC 3.99 m/uL (3.80-5.40); RDW 12.4 % (11.5-15.5); WBC 10.8 k/uL (3.8-10.6)
[2018-02-04] MEDS: NON-FORMULARY DRUG (Fish Oil/Dha/Epa [Fish Oil 1,200 Mg Fish Oil] 1 CAP) PO SCH (07:58)
[2018-02-04] MEDS: NON-FORMULARY DRUG (Biotin [Biotin] 5,000 MCG) PO SCH (07:58)
[2018-02-04] MEDS: traMADol 50 MG TAB PO SCH ×4 (08:00→22:18)
--- NOTE | 2018-02-04 08:58 | P.PN ---
Progress Note - Text Progress Note Date: 02/04/18 49-year-old female status post right total knee arthroplasty. Patient status post abductor canal catheter within On-Q pump. VAS 3/10, patient is ambulating , tolerating diet. No motor or sensory deficits.
[2018-02-04] MEDS: buPROPion SR 150 MG TABLET.ER PO SCH ×2 (09:14→20:53)
[2018-02-04] MEDS: FLUoxetine HCL 10 MG CAP PO SCH (09:15)
[2018-02-04] MEDS: ENOXAPARIN 30 MG/0.3 ML SYRINGE SQ SCH ×2 (09:16→20:54)
[2018-02-04] MEDS: CHOLECALCIFEROL 1,000 UNIT TAB PO SCH (09:18)
[2018-02-04] MEDS: ASCORBIC ACID 500 MG TAB PO SCH (09:18)
[2018-02-04] MEDS: CYANOCOBALAMIN 500 MCG TAB PO SCH (09:18)
[2018-02-04] MEDS: MAGNESIUM OXIDE 400 MG TAB PO SCH (09:19)
[2018-02-04] MEDS: MULTIVITAMINS, THERA 1 EACH TAB PO SCH (09:19)
[2018-02-04] MEDS: FAMOTIDINE 20 MG TAB PO SCH (09:19)
[2018-02-04] MEDS: MELOXICAM 7.5 MG TAB PO SCH (09:19)
[2018-02-04] MEDS: FERROUS SULFATE 325 MG TAB PO SCH (09:19)
--- NOTE | 2018-02-04 11:56 | P.CONS ---
History of Present Illness - Reason for Consult Consult date: 02/04/18 Medical management Requesting physician: Delmar Calles - Chief Complaint Status post right total knee arthroplasty - History of Present Illness This is a 57-year-old female, patient of Dr. Ca. She has a known past medical history of depression and osteoarthritis. Patient underwent a right total knee arthroplasty yesterday. Estimated blood loss 50 mL. medications reported. Patient denies any chest pain or shortness of breath. Reports having some knee pain but has been up and ambulating to the bathroom and in the hallway. She reports urinating without difficulty or any burning with urination. Patient denies any chest pain or shortness of breath. Reports passing gas but no bowel movement yet. They're anticipating discharge home with home care tomorrow. We have been consulted for medical management. Review of Systems Please refer to HPI otherwise unremarkable Past Medical History Past Medical History: Osteoarthritis (OA), Sleep Apnea/CPAP/BIPAP Additional Past Medical History / Comment(s): HX OF VERTIGO., SLEEP APNEA (NO MACHINE)., TAKES IRON SUPPLEMENT BECAUSE SHE DONATES BLOOD, PAIN RIGHT KNEE. History of Any Multi-Drug Resistant Organisms: None Reported Past Surgical History: Section, Joint Replacement Additional Past Surgical History / Comment(s): LIPOMA REMOVED, TOTAL LEFT HIP ( APR 2017) Past Anesthesia/Blood Transfusion Reactions: No Reported Reaction Additional Past Anesthesia/Blood Transfusion Reaction / Comm: PT ADOPTED-UNSURE OF FAMILY HX. Past Psychological History: Depression Smoking Status: Former smoker Past Alcohol Use History: None Reported Additional Past Alcohol Use History / Comment(s): QUIT SMOKING AUG 1996. SMOKED FOR 20 YEARS , 1/2 PPD. Past Drug Use History: None Reported - Past Family History Mother Family Medical History: Unable to Obtain Additional Family Medical History / Comment(s): ADOPTED Medications and Allergies Home Medications Medication Instructions Recorded Confirmed Type Ascorbic Acid [Vitamin C] 1,000 mg PO DAILY 04/25/17 02/03/18 History Biotin 5,000 mcg PO DAILY 04/25/17 02/03/18 History Cholecalciferol [Vitamin D3] 5,000 unit PO DAILY 04/25/17 02/03/18 History Cyanocobalamin (Vitamin B-12) 3,000 mcg PO DAILY 04/25/17 02/03/18 History [Vitamin B-12] Fish Oil/Dha/Epa [Fish Oil 1,200 1 cap PO DAILY 04/25/17 02/03/18 History mg Fish Oil] Magnesium 400 mg PO DAILY 04/25/17 02/03/18 History Naproxen Sodium [Aleve] 220 mg PO BID PRN 04/25/17 02/03/18 History buPROPion HCL [buPROPion HCL SR] 150 mg PO BID 04/25/17 02/03/18 History traZODone HCL 50 mg PO HS 04/25/17 02/03/18 History Ferrous Sulfate [Iron (65 MG 325 mg PO DAILY 01/24/18 02/03/18 History Elemental)] Multivit with Calcium,Iron,Min 1 tab PO DAILY 01/24/18 02/03/18 History [Women's Multivitamin] FLUoxetine HCL [PROzac] 10 mg PO DAILY 02/03/18 02/03/18 History Allergies Allergy/AdvReac Type Severity Reaction Status Date / Time clindamycin Allergy Severe Rash/Hives, Verified 02/03/18 15:44 Swelling, Itching erythromycin base Allergy Severe Rash/Hives, Verified 02/03/18 15:44 swelling, itching mycin antibiotics Allergy Unknown Rash/Hives, Uncoded 02/03/18 11:57 Swelling, Itching Physical Exam Vitals: Vital Signs Temp Pulse Pulse Pulse Pulse Resp BP 02/04/18 07:05 98.4 F 78 16 108/53 02/04/18 01:35 98.1 F 83 16 102/68 02/03/18 20:40 71 109/73 02/03/18 19:15 74 109/72 02/03/18 19:00 76 116/63 02/03/18 18:45 85 104/67 02/03/18 18:30 87 126/81 02/03/18 18:15 81 115/60 02/03/18 18:00 80 130/83 02/03/18 17:45 71 115/62 02/03/18 17:30 98.5 F 79 109/70 02/03/18 16:24 71 16 93/55 02/03/18 16:10 79 16 97/50 02/03/18 15:54 78 16 97/51 02/03/18 15:38 78 16 95/51 02/03/18 15:21 97 F L 82 16 104/56 02/03/18 12:04 98.5 F 80 18 138/65 Pulse Ox 02/04/18 07:05 98 02/04/18 01:35 93 L 02/03/18 20:40 02/03/18 19:15 02/03/18 19:00 02/03/18 18:45 02/03/18 18:30 02/03/18 18:15 02/03/18 18:00 02/03/18 17:45 02/03/18 17:30 96 02/03/18 16:24 99 02/03/18 16:10 99 02/03/18 15:54 99 02/03/18 15:38 99 02/03/18 15:21 99 02/03/18 12:04 97 Intake and Output 02/03/18 02/04/18 02/04/18 22:59 06:59 14:59 Intake Total 280 560 Output Total 50 Balance 230 560 Intake: IV 0 Intake, IV Titration 280 560 Amount Lactated Ringers 1,000 ml 280 560 @ 80 mls/hr IV .[id number] Rx#:[id number] Output: Estimated Blood Loss 50 Other: # Voids 1 2 Weight 91.626 kg Head normocephalic Neck supple Lungs clear to auscultation bilaterally no wheezing or crackles Heart regular rate and rhythm S1-S2, no rub or gallop Abdomen is soft nontender nondistended positive bowel sounds no hepatosplenomegaly Extremities no edema. Right knee dressing clean dry and intact Neuro alert and orientated to 3 Results CBC & Chem 7: 02/04/18 07:22 Labs: Abnormal Lab Results - Last 24 Hours (Table) 02/04/18 Range/Units 07:22 WBC 10.8 H (3.8-10.6) k/uL Neutrophils # 8.9 H (1.3-7.7) k/uL Assessment and Plan Assessment: 1. Osteoarthritis of the right knee status post right total knee arthroplasty. Continue Lovenox for DVT prophylaxis continue pain medication with [place] and IV Dilaudid if needed 2. Depression: Resume the Wellbutrin, Prozac and trazodone 3. Previous left hip osteoarthritis requiring an anterior left total hip arthroplasty in April 2017 Thank you for this consultation. We will continue to follow patient during her hospitalization. I will check routine labs including a CBC and CMP in a.m. Anticipating discharge home with home care possibly tomorrow Time with Patient: Greater than 30 (Greater than 60% of the total time spent in counseling and coordination of care.I performed an examination of the patient and discussed their management with the physician Tool Technician. I have reviewed the Physician Tool Technician's notes and agree with the documented findings and plan of care)
--- NOTE | 2018-02-04 13:37 | P.PN ---
Subjective Progress Note Date: 02/04/18 Principal diagnosis: Status post right total knee arthroplasty Patient seen today resting in her hospital bed, she appears comfortable. Pain is controlled at this time. She denies any headaches, lightheadedness, chest pain or shortness of breath. Objective - Vital Signs Vital signs: Vital Signs Temp 98.4 F 02/04/18 07:05 Pulse 78 02/04/18 07:05 Resp 16 02/04/18 07:05 BP 108/53 02/04/18 07:05 Pulse Ox 98 02/04/18 07:05 Intake & Output 02/03/18 02/04/18 02/04/18 18:59 06:59 18:59 Intake Total 1201 840 540 Output Total 50 Balance 1151 840 540 Weight 91.626 kg Intake: IV 1201 Intake, IV Titration 840 Amount Lactated Ringers 1,000 ml 840 @ 80 mls/hr IV .[id number] Rx#:[id number] Oral 540 Output: Estimated Blood Loss 50 Other: # Voids 2 2 - Exam Right lower extremity: Incision is clean, dry, and intact. The prineo tape is in good condition. There is minimal soft tissue swelling and ecchymosis surrounding the medial and lateral aspects of the incision. Calf is soft, no tenderness with palpation. Plantar flexion, dorsiflexion, EHL, FHL are intact. Sensory exam to light touch throughout the extremity is intact, dorsal pedis pulses 2+. - Labs CBC & Chem 7: 02/04/18 07:22 Labs: Abnormal Lab Results - Last 24 Hours (Table) 02/04/18 Range/Units 07:22 WBC 10.8 H (3.8-10.6) k/uL Neutrophils # 8.9 H (1.3-7.7) k/uL Assessment and Plan Plan: Assessment: Postop day #1 status post right total knee arthroplasty Plan: Pain control, continue use of oral medication GI and DVT prophylaxis, continue current medication Wound care instructions discussed Encourage incentive spirometer Raymundo therapy and use of CPM machine Medical recommendations Discharge planning: Patient likely be discharged home tomorrow Time with Patient: Less than 30
[2018-02-04] MEDS: SENNOSIDES-DOCUSATE SODIUM 1 EACH TAB PO SCH (20:53)
[2018-02-04] MEDS: traZODone HCL 50 MG TAB PO SCH (20:54)
[2018-02-05] MEDS ORDERED: HYDROmorphone 0.5 MG/0.5 ML SYRINGE ONE (03:26)
[2018-02-05] MEDS ORDERED: HYDROcodone/APAP 7.5-325MG 1 EACH TAB ONE (03:26)
[2018-02-05] MEDS: LACTATED RINGERS 1,000 ML IV SCH ×3 (04:26→19:03)
--- NOTE | 2018-02-05 06:45 | P.PN ---
Progress Note - Text Progress Note Date: 02/05/18 The patient is doing well status post total knee replacement. Her pain is well controlled by a combination of local anesthetic infusion through her adductor canal catheter and oral analgesics. There are no signs of infection around the catheter skin entry site. The local anesthetic infusion will be continued as per protocol.
[2018-02-05 08:05] LABS: Basophils % (A) 0 %; Eosinophils % (A) 0 %; HCT 33.1 % (34.0-46.0); HGB 10.7 gm/dL (11.4-16.0); Lymphocytes # (A) 0.8 k/uL (1.0-4.8); Lymphocytes % (A) 8 %; MCH 28.8 pg (25.0-35.0); MCHC 32.3 g/dL (31.0-37.0); MCV 89.1 fL (80.0-100.0); Monocytes # (A) 0.9 k/uL (0-1.0); Monocytes % (A) 10 %; Neutrophils # (A) 7.6 k/uL (1.3-7.7); Neutrophils % (A) 80 %; Platelet Count 252 k/uL (150-450); RBC 3.72 m/uL (3.80-5.40); RDW 12.1 % (11.5-15.5); WBC 9.5 k/uL (3.8-10.6)
[2018-02-05] MEDS: MELOXICAM 7.5 MG TAB PO SCH (08:35)
[2018-02-05] MEDS: buPROPion SR 150 MG TABLET.ER PO SCH ×2 (08:35→21:04)
[2018-02-05] MEDS: traMADol 50 MG TAB PO SCH ×4 (08:36→21:07)
[2018-02-05] MEDS: FLUoxetine HCL 10 MG CAP PO SCH (08:36)
[2018-02-05] MEDS: ENOXAPARIN 30 MG/0.3 ML SYRINGE SQ SCH ×2 (08:37→21:03)
[2018-02-05 08:41] LABS: ALT 73 U/L (9-52); AST 82 U/L (14-36); Albumin 3.2 g/dL (3.5-5.0); Alkaline Phosphatase 102 U/L (38-126); Anion Gap 6 mmol/L; Blood Urea Nitrogen 9 mg/dL (7-17); Carbon Dioxide 28 mmol/L (22-30); Chloride 100 mmol/L (98-107); Glucose 109 mg/dL (74-99); Potassium 4.7 mmol/L (3.5-5.1); Sodium 134 mmol/L (137-145); Total Bilirubin 0.6 mg/dL (0.2-1.3); Total Protein 5.7 g/dL (6.3-8.2)
[2018-02-05] MEDS: NON-FORMULARY DRUG (Biotin [Biotin] 5,000 MCG) PO SCH (08:48)
[2018-02-05] MEDS: CHOLECALCIFEROL 1,000 UNIT TAB PO SCH (08:48)
[2018-02-05] MEDS: FAMOTIDINE 20 MG TAB PO SCH (08:48)
[2018-02-05] MEDS: CYANOCOBALAMIN 500 MCG TAB PO SCH (08:48)
[2018-02-05] MEDS: ASCORBIC ACID 500 MG TAB PO SCH (08:48)
[2018-02-05] MEDS: FERROUS SULFATE 325 MG TAB PO SCH (08:48)
[2018-02-05] MEDS: MULTIVITAMINS, THERA 1 EACH TAB PO SCH (08:49)
[2018-02-05] MEDS: MAGNESIUM OXIDE 400 MG TAB PO SCH (08:49)
[2018-02-05] MEDS: NON-FORMULARY DRUG (Fish Oil/Dha/Epa [Fish Oil 1,200 Mg Fish Oil] 1 CAP) PO SCH (08:49)
--- NOTE | 2018-02-05 09:19 | P.PN ---
Subjective Progress Note Date: 02/05/18 Principal diagnosis: Status post right total knee arthroplasty Patient seen today resting in her hospital bed, she appears comfortable. Pain is controlled at this time. She denies any headaches, lightheadedness, chest pain or shortness of breath. Objective - Vital Signs Vital signs: Vital Signs Temp 99.6 F 02/05/18 08:55 Pulse 86 02/05/18 08:55 Resp 16 02/05/18 08:55 BP 133/78 02/05/18 08:55 Pulse Ox 93 L 02/05/18 08:55 Intake & Output 02/04/18 02/05/18 02/05/18 18:59 06:59 18:59 Intake Total 540 Balance 540 Intake: Oral 540 Other: Voiding Method Toilet # Voids 2 1 - Exam Right lower extremity: Incision is clean, dry, and intact. The prineo tape is in good condition. There is minimal soft tissue swelling and ecchymosis surrounding the medial and lateral aspects of the incision. Calf is soft, no tenderness with palpation. Plantar flexion, dorsiflexion, EHL, FHL are intact. Sensory exam to light touch throughout the extremity is intact, dorsal pedis pulses 2+. - Labs CBC & Chem 7: 02/05/18 07:22 02/05/18 07:22 Labs: Abnormal Lab Results - Last 24 Hours (Table) 02/05/18 02/05/18 Range/Units 07:22 07:22 RBC 3.72 L (3.80-5.40) m/uL Hgb 10.7 L (11.4-16.0) gm/dL Hct 33.1 L (34.0-46.0) % Lymphocytes # 0.8 L (1.0-4.8) k/uL Sodium 134 L (137-145) mmol/L Glucose 109 H (74-99) mg/dL Calcium 8.0 L (8.4-10.2) mg/dL AST 82 H (14-36) U/L ALT 73 H (9-52) U/L Total Protein 5.7 L (6.3-8.2) g/dL Albumin 3.2 L (3.5-5.0) g/dL Assessment and Plan Plan: Assessment: Postop day #2 status post right total knee arthroplasty Plan: Pain control, continue current regimen GI and DVT prophylaxis, aspirin 325 mg twice a day for a month Wound care instructions discussed Encourage incentive spirometer Raymundo therapy and use of CPM machine Medical recommendations Discharge planning: Plan for discharge home today Time with Patient: Less than 30
--- NOTE | 2018-02-05 09:22 | P.DS ---
Providers Date of admission: 02/03/18 11:25 Expected date of discharge: 02/05/18 Attending physician: Delmar Calles Consults: 02/03/18 15:21 Consult Physician Routine Consulting Provider: Akosua Ca Reason/Comments: Medical management Do you want consulting provider notified?: Yes Primary care physician: Akosua Ca Hospital Course: Date of admission: 02/03/2018 Date of discharge: 02/05/2018 Admission diagnosis: Status post right total knee arthroplasty Discharge diagnosis: Same Attending physician: Dr. Calles Surgical procedures: Right total knee arthroplasty Brief history: Patient is a 57-year-old female with a history of with progressive primary right hip osteoarthritis. At this point patient has failed conservative treatment measures and has opted to proceed with a elective right total hip arthroplasty. Hospital course: Details of patient's surgery can be found in operative report. Patient tolerated the procedure well and was subsequently transported to orthopedic floor. Patient's orthopeidc and medical care was provided daily. Patient had daily laboratory tests performed for evaluation of overall blood counts. Patient had daily physical therapy to include strengthening range of motion as well as education with walker ambulation. Patient was treated with Lovenox for their postoperative DVT prophylaxis during their inpatient stay. Patient was noted to have a relatively uneventful postoperative course. Patient reported satisfactory pain control with oral pain medications by postoperative day 0. Patient showed satisfactory progress with physical therapy. Patient moved steadily through the program and had no difficulty meeting the goals by postoperative day 2. Given patient's otherwise satisfactory course and having met physical therapy goals, plan is to discharge patient home on postoperative day 2. Discharge condition/disposition: Patient will be discharged home in stable condition. Discharge medications: Instructions are given on resumption of patient's normal daily medications per primary care recommendation, in addition patient will be prescribed . Discharge instructions: 1. Wound care and infection precautions, keep incision dry and covered while showering, no lotions, creams, moisturizers. No soaking, tubs, pools, hottubs. Do not scrub over the incision. 2. Weight-bear as tolerated with walker / cane until follow-up. 3. Ice and elevate when necessary. Do not exceed 20 minutes per hour with ice pack. 4. Utilize compression sleeve until seen at first follow up appointment. 5. Visiting nursing care. 6. Home physical therapy. 7. Pain meds and anticoagulants per prescription. 8. Pain medication has potential to cause constipation. Increase oral fluid and fiber intake. Contact primary care provider if you have not had a bowel movement within 48 hours after discharge 9. No anti-inflammatory medication until discussed at first post operative visit, this including Motrin, Aleve, Mobic, Diclofenac. 10. Follow up in office at 2 weeks postop with Anuj Dunham PA-C 11. Follow up with your primary care doctor 7-10 days after discharge. 12. Contact [facility] with any questions, . Procedures: Right total knee arthroplasty Patient Condition at Discharge: Good Plan - Discharge Summary Discharge Rx Participant: Yes New Discharge Prescriptions: New Aspirin 325 mg PO BID #60 tab Docusate [Colace] 100 mg PO DAILY #30 capsule HYDROcodone/APAP 7.5-325MG [[place] 7.5] 1 - 2 each PO Q6HR PRN #56 tab PRN Reason: Pain traMADol HCl [Ultram] 50 mg PO Q6H PRN #28 tab PRN Reason: Pain No Action buPROPion HCL [buPROPion HCL SR] 150 mg PO BID Cholecalciferol [Vitamin D3] 5,000 unit PO DAILY traZODone HCL 50 mg PO HS Magnesium 400 mg PO DAILY Fish Oil/Dha/Epa [Fish Oil 1,200 mg Fish Oil] 1 cap PO DAILY Cyanocobalamin (Vitamin B-12) [Vitamin B-12] 3,000 mcg PO DAILY Biotin 5,000 mcg PO DAILY Ascorbic Acid [Vitamin C] 1,000 mg PO DAILY Ferrous Sulfate [Iron (65 MG Elemental)] 325 mg PO DAILY Multivit with Calcium,Iron,Min [Women's Multivitamin] 1 tab PO DAILY FLUoxetine HCL [PROzac] 10 mg PO DAILY Discharge Medication List Ascorbic Acid [Vitamin C] 1,000 mg PO DAILY 04/25/17 [History] Biotin 5,000 mcg PO DAILY 04/25/17 [History] Cholecalciferol [Vitamin D3] 5,000 unit PO DAILY 04/25/17 [History] Cyanocobalamin (Vitamin B-12) [Vitamin B-12] 3,000 mcg PO DAILY 04/25/17 [ History] Fish Oil/Dha/Epa [Fish Oil 1,200 mg Fish Oil] 1 cap PO DAILY 04/25/17 [History] Magnesium 400 mg PO DAILY 04/25/17 [History] buPROPion HCL [buPROPion HCL SR] 150 mg PO BID 04/25/17 [History] traZODone HCL 50 mg PO HS 04/25/17 [History] Ferrous Sulfate [Iron (65 MG Elemental)] 325 mg PO DAILY 01/24/18 [History] Multivit with Calcium,Iron,Min [Women's Multivitamin] 1 tab PO DAILY 01/24/18 [ History] FLUoxetine HCL [PROzac] 10 mg PO DAILY 02/03/18 [History] Aspirin 325 mg PO BID #60 tab 02/05/18 [Rx] Docusate [Colace] 100 mg PO DAILY #30 capsule 02/05/18 [Rx] HYDROcodone/APAP 7.5-325MG [[place] 7.5] 1 - 2 each PO Q6HR PRN #56 tab 02/05/18 [ Rx] traMADol HCl [Ultram] 50 mg PO Q6H PRN #28 tab 02/05/18 [Rx] Follow up Appointment(s)/Referral(s): [facility], [NON-STAFF] - As Needed Hernán Dunham PAC [PHYSICIAN TENTERING MACHINE FEEDER] - 02/19/18 2:50 pm Patient Instructions/Handouts: Knee Replacement (DC) Activity/Diet/Wound Care/Special Instructions: Orthopedic Discharge Instructions: 1. Wound care and infection precautions, keep incision dry and covered while showering, no lotions, creams, moisturizers. No soaking, pools, hot tubs. Do not scrub over incision. 2. Weight-bear as tolerated with walker / cane until follow-up. 3. Ice and elevate when necessary. Do not exceed 20 minutes per hour with ice pack. 4. Utilize compression sleeve until seen at first follow up appointment. 5. Visiting nursing care. 6. Home physical therapy. 7. Pain meds and anticoagulants per prescription. 8. Pain medication has potential to cause constipation. Increase oral fluid and fiber intake. Contact primary care provider if you have not had a bowel movement within 48 hours after discharge. 9. No anti-inflammatory medication until discussed at first post operative visit, this including Motrin, Aleve, Mobic, Diclofenac. 10. Follow up in office at 2 weeks postop with Anuj Dunham PA-C 11. Follow up with your primary care doctor 7-10 days after discharge. 12. Contact [facility] with any questions, . Discharge Disposition: HOME WITH HOME HEALTH SERVICES
[2018-02-05] MEDS: HYDROcodone/APAP 7.5-325MG 1 EACH TAB PO PRN ×3 (10:41→21:53)
--- NOTE | 2018-02-05 12:44 | P.PN ---
Subjective Progress Note Date: 02/05/18 This is a 57-year-old female, patient of Dr. Ca. She has a known past medical history of depression and osteoarthritis. Patient underwent a right total knee arthroplasty yesterday. Estimated blood loss 50 mL. medications reported. Patient denies any chest pain or shortness of breath. Reports having some knee pain but has been up and ambulating to the bathroom and in the hallway. She reports urinating without difficulty or any burning with urination. Patient denies any chest pain or shortness of breath. Reports passing gas but no bowel movement yet. They're anticipating discharge home with home care tomorrow. We have been consulted for medical management. On 02/05/2018. Patient is currently resting comfortably in bed at this time. Does complain of some mild discomfort. Per ortho surgical services and physical therapy recommendation would like to hold off on discharge until tomorrow. Patient also having low-grade temps 99.6. Patient does complain of urinary frequency. Urine culture and urinary analysis have been ordered. WBC this A.M. 9.5. Patient denies chest pain or shortness of breath. ALT 73 and AST 82. We'll continue to monitor. Anticipate possible discharge home tomorrow Objective - Vital Signs Vital signs: Vital Signs Temp 99.6 F 02/05/18 08:55 Pulse 86 02/05/18 08:55 Resp 16 02/05/18 08:55 BP 133/78 02/05/18 08:55 Pulse Ox 93 L 02/05/18 08:55 Intake & Output 02/04/18 02/05/18 02/05/18 18:59 06:59 18:59 Intake Total 540 Balance 540 Intake: Oral 540 Other: Voiding Method Toilet # Voids 2 1 - Exam Head normocephalic Neck supple Lungs clear to auscultation bilaterally no wheezing or crackles Heart regular rate and rhythm S1-S2, no rub or gallop Abdomen is soft nontender nondistended positive bowel sounds no hepatosplenomegaly Extremities no edema. Right knee dressing clean dry and intact Neuro alert and orientated to 3 - Labs CBC & Chem 7: 02/05/18 07:22 02/05/18 07:22 Labs: Abnormal Lab Results - Last 24 Hours (Table) 02/05/18 02/05/18 Range/Units 07:22 07:22 RBC 3.72 L (3.80-5.40) m/uL Hgb 10.7 L (11.4-16.0) gm/dL Hct 33.1 L (34.0-46.0) % Lymphocytes # 0.8 L (1.0-4.8) k/uL Sodium 134 L (137-145) mmol/L Glucose 109 H (74-99) mg/dL Calcium 8.0 L (8.4-10.2) mg/dL AST 82 H (14-36) U/L ALT 73 H (9-52) U/L Total Protein 5.7 L (6.3-8.2) g/dL Albumin 3.2 L (3.5-5.0) g/dL Assessment and Plan Assessment: 1. Osteoarthritis of the right knee status post right total knee arthroplasty. Continue Lovenox for DVT prophylaxis continue pain medication with [place] and IV Dilaudid if needed 2. Depression: Resume the Wellbutrin, Prozac and trazodone 3. Previous left hip osteoarthritis requiring an anterior left total hip arthroplasty in April 2017 4. Low-grade temps. Patient had a temp of 99.6 this AM. Patient does complain of increased urinary frequency. Urinary analysis and urine culture has been ordered. 5. Elevated Liver enzymes. AST 82, ALT 73. We'll continue to monitor closely Anticipate possible discharge home tomorrow DVT prophylaxis Lovenox, GI prophylaxis Pepcid I performed an examination of the patient and discussed their management with the Nurse Practitioner. I have reviewed the Nurse Practitioner's notes and agree with the documented findings and plan of care
[2018-02-05] MEDS ORDERED: fentaNYL (PF) 50 MCG/ML 2 ML AMP ONE (13:14)
[2018-02-05] MEDS ORDERED: PROPOFOL 10 MG/ML 20 ML VIAL IV ONE (13:14)
[2018-02-05] MEDS ORDERED: PHENYLEPHRINE-0.9% NACL SYG 1 MG/10 ML SYRINGE ONE (13:14)
[2018-02-05] MEDS ORDERED: KETAMINE 10 MG/ML 20 ML VIAL ONE (13:14)
[2018-02-05] MEDS ORDERED: SODIUM CHLORIDE 0.9% 100 ML BAG ONE (13:14)
[2018-02-05] MEDS ORDERED: MIDAZOLAM 2 MG/2 ML VIAL ONE (13:14)
[2018-02-05] MEDS ORDERED: TRANEXAMIC ACID 1,000 MG/10 ML VIAL ONE (13:14)
[2018-02-05] MEDS ORDERED: GLYCOPYRROLATE 0.2 MG/ML 2 ML VIAL ONE (13:14)
[2018-02-05 17:20] LABS: Appearance,Urine Clear (Clear); Bilirubin,Urine Negative (Negative); Blood,Urine Negative (Negative); Color,Urine Yellow; Glucose,Urine (UA) Negative (Negative); Ketones,Urine 1+ (Negative); Leukocyte Esterase,Urine Negative (Negative); Nitrite,Urine Negative (Negative); Protein,Urine Negative (Negative); Specific Gravity,Urine 1.009 (1.001-1.035); Urobilinogen,Urine <2.0 mg/dL (<2.0)
[2018-02-05] MEDS: HYDROmorphone 0.5 MG/0.5 ML SYRINGE IVP PRN (17:32)
[2018-02-05] MEDS ORDERED: HYDROmorphone 1 MG/ML 1 ML SYRINGE IVP PRN ×3 (17:45→17:46)
[2018-02-05 20:21] VITALS: RESP 16
[2018-02-05] MEDS: traZODone HCL 50 MG TAB PO SCH (21:05)
[2018-02-05] MEDS: SENNOSIDES-DOCUSATE SODIUM 1 EACH TAB PO SCH (21:07)
[2018-02-06] MEDS: LACTATED RINGERS 1,000 ML IV SCH ×2 (02:03→02:26)
[2018-02-06] MEDS: HYDROcodone/APAP 7.5-325MG 1 EACH TAB PO PRN (05:27)
[2018-02-06 07:14] LABS: Basophils % (A) 0 %; Eosinophils # (A) 0.1 k/uL (0-0.7); Eosinophils % (A) 1 %; HCT 31.8 % (34.0-46.0); HGB 10.5 gm/dL (11.4-16.0); Lymphocytes # (A) 0.9 k/uL (1.0-4.8); Lymphocytes % (A) 9 %; MCHC 32.9 g/dL (31.0-37.0); MCV 88.1 fL (80.0-100.0); Mean Platelet Volume 6.7; Monocytes # (A) 0.9 k/uL (0-1.0); Monocytes % (A) 10 %; Neutrophils # (A) 7.3 k/uL (1.3-7.7); Neutrophils % (A) 78 %; Platelet Count 267 k/uL (150-450); RBC 3.61 m/uL (3.80-5.40); RDW 12.3 % (11.5-15.5); WBC 9.4 k/uL (3.8-10.6)
[2018-02-06 07:30] LABS: ALT 73 U/L (9-52); AST 58 U/L (14-36); Albumin 3.2 g/dL (3.5-5.0); Alkaline Phosphatase 125 U/L (38-126); Anion Gap 7 mmol/L; Blood Urea Nitrogen 5 mg/dL (7-17); Calcium 8.6 mg/dL (8.4-10.2); Carbon Dioxide 30 mmol/L (22-30); Chloride 101 mmol/L (98-107); Glucose 115 mg/dL (74-99); Sodium 138 mmol/L (137-145); Total Bilirubin 0.6 mg/dL (0.2-1.3); Total Protein 5.8 g/dL (6.3-8.2)
[2018-02-06 08:10] VITALS: BP 148/79; PULSE 89; TEMP 98.4
[2018-02-06] MEDS: CHOLECALCIFEROL 1,000 UNIT TAB PO SCH (09:11)
[2018-02-06] MEDS: CYANOCOBALAMIN 500 MCG TAB PO SCH (09:11)
[2018-02-06] MEDS: ASCORBIC ACID 500 MG TAB PO SCH (09:11)
[2018-02-06] MEDS: NON-FORMULARY DRUG (Biotin [Biotin] 5,000 MCG) PO SCH (09:11)
[2018-02-06] MEDS: FAMOTIDINE 20 MG TAB PO SCH (09:11)
[2018-02-06] MEDS: MAGNESIUM OXIDE 400 MG TAB PO SCH (09:12)
[2018-02-06] MEDS: MULTIVITAMINS, THERA 1 EACH TAB PO SCH (09:12)
[2018-02-06] MEDS: FERROUS SULFATE 325 MG TAB PO SCH (09:12)
[2018-02-06] MEDS: NON-FORMULARY DRUG (Fish Oil/Dha/Epa [Fish Oil 1,200 Mg Fish Oil] 1 CAP) PO SCH (09:12)
[2018-02-06] MEDS: traMADol 50 MG TAB PO SCH ×2 (09:14→12:21)
[2018-02-06] MEDS: MELOXICAM 7.5 MG TAB PO SCH (09:15)
[2018-02-06] MEDS: buPROPion SR 150 MG TABLET.ER PO SCH (09:16)
[2018-02-06] MEDS: FLUoxetine HCL 10 MG CAP PO SCH (09:16)
[2018-02-06] MEDS: ENOXAPARIN 30 MG/0.3 ML SYRINGE SQ SCH (09:16)
--- NOTE | 2018-02-06 10:35 | P.PN ---
Subjective Progress Note Date: 02/06/18 Principal diagnosis: Status post right total knee arthroplasty Patient seen today resting in her hospital bed, she appears comfortable. Pain is controlled at this time. There was some concern yesterday with ambulation, but has improved, she should be discharged home today. She denies any headaches , lightheadedness, chest pain or shortness of breath. Objective - Vital Signs Vital signs: Vital Signs Temp 98.4 F 02/06/18 07:55 Pulse 89 02/06/18 07:55 Resp 16 02/06/18 07:55 BP 148/79 02/06/18 07:55 Pulse Ox 98 02/06/18 07:55 Intake & Output 02/05/18 02/06/18 02/06/18 18:59 06:59 18:59 Output Total 2 Balance -2 Weight 91.626 kg Output: Urine 2 Other: Voiding Method Toilet # Voids 2 - Exam Right lower extremity: Incision is clean, dry, and intact. The prineo tape is in good condition. There is minimal soft tissue swelling and ecchymosis surrounding the medial and lateral aspects of the incision. Calf is soft, no tenderness with palpation. Plantar flexion, dorsiflexion, EHL, FHL are intact. Sensory exam to light touch throughout the extremity is intact, dorsal pedis pulses 2+. - Labs CBC & Chem 7: 02/06/18 06:28 02/06/18 06:28 Labs: Abnormal Lab Results - Last 24 Hours (Table) 02/05/18 02/06/18 02/06/18 Range/Units 10:30 06:28 06:28 RBC 3.61 L (3.80-5.40) m/uL Hgb 10.5 L (11.4-16.0) gm/dL Hct 31.8 L (34.0-46.0) % Lymphocytes # 0.9 L (1.0-4.8) k/uL BUN 5 L (7-17) mg/dL Glucose 115 H (74-99) mg/dL AST 58 H (14-36) U/L ALT 73 H (9-52) U/L Total Protein 5.8 L (6.3-8.2) g/dL Albumin 3.2 L (3.5-5.0) g/dL Urine Ketones 1+ H (Negative) Microbiology - Last 24 Hours (Table) 02/05/18 10:30 Urine Culture - Preliminary Urine,Clean Catch Assessment and Plan Plan: Assessment: Postop day #3 status post right total knee arthroplasty Plan: Pain control, continue current regimen GI and DVT prophylaxis, aspirin 325 mg twice a day for a month Wound care instructions discussed Encourage incentive spirometer Raymundo therapy and use of CPM machine Medical recommendations Discharge planning: Plan for discharge home today Time with Patient: Less than 30
--- NOTE | 2018-02-06 14:43 | P.PN ---
Subjective Progress Note Date: 02/06/18 This is a 57-year-old female, patient of Dr. Ca. She has a known past medical history of depression and osteoarthritis. Patient underwent a right total knee arthroplasty yesterday. Estimated blood loss 50 mL. medications reported. Patient denies any chest pain or shortness of breath. Reports having some knee pain but has been up and ambulating to the bathroom and in the hallway. She reports urinating without difficulty or any burning with urination. Patient denies any chest pain or shortness of breath. Reports passing gas but no bowel movement yet. They're anticipating discharge home with home care tomorrow. We have been consulted for medical management. On 02/05/2018. Patient is currently resting comfortably in bed at this time. Does complain of some mild discomfort. Per ortho surgical services and physical therapy recommendation would like to hold off on discharge until tomorrow. Patient also having low-grade temps 99.6. Patient does complain of urinary frequency. Urine culture and urinary analysis have been ordered. WBC this A.M. 9.5. Patient denies chest pain or shortness of breath. ALT 73 and AST 82. We'll continue to monitor. Anticipate possible discharge home tomorrow 02/06/2018 patient is medically stable for discharge. Her low-grade temps resolved. No evidence of infection. Urinalysis is negative. White count 9.4. Her LFTs are trending down. Patient denies any abdominal pain. Denies any nausea or vomiting. Denies any bowel movement changes or urinary symptoms. Denies any chest pain or shortness Objective - Vital Signs Vital signs: Vital Signs Temp 98.4 F 02/06/18 07:55 Pulse 89 02/06/18 07:55 Resp 16 02/06/18 07:55 BP 148/79 02/06/18 07:55 Pulse Ox 98 02/06/18 07:55 Intake & Output 02/05/18 02/06/18 02/06/18 18:59 06:59 18:59 Intake Total 540 Output Total 2 Balance -2 540 Weight 91.626 kg Intake: Oral 540 Output: Urine 2 Other: Voiding Method Toilet # Voids 2 2 - Exam Head normocephalic Neck supple Lungs clear to auscultation bilaterally no wheezing or crackles Heart regular rate and rhythm S1-S2, no rub or gallop Abdomen is soft nontender nondistended positive bowel sounds no hepatosplenomegaly Extremities no edema Neuro alert and orientated to 3 - Labs CBC & Chem 7: 02/06/18 06:28 02/06/18 06:28 Labs: Abnormal Lab Results - Last 24 Hours (Table) 02/05/18 02/06/18 02/06/18 Range/Units 10:30 06:28 06:28 RBC 3.61 L (3.80-5.40) m/uL Hgb 10.5 L (11.4-16.0) gm/dL Hct 31.8 L (34.0-46.0) % Lymphocytes # 0.9 L (1.0-4.8) k/uL BUN 5 L (7-17) mg/dL Glucose 115 H (74-99) mg/dL AST 58 H (14-36) U/L ALT 73 H (9-52) U/L Total Protein 5.8 L (6.3-8.2) g/dL Albumin 3.2 L (3.5-5.0) g/dL Urine Ketones 1+ H (Negative) Microbiology - Last 24 Hours (Table) 02/05/18 10:30 Urine Culture - Final Urine,Clean Catch Assessment and Plan Assessment: 1. Osteoarthritis of the right knee status post right total knee arthroplasty. Continue aspirin 325 mg twice a day per orthopedics for DVT prophylaxis 2. Depression: Resume the Wellbutrin, Prozac and trazodone 3. Previous left hip osteoarthritis requiring an anterior left total hip arthroplasty in April 2017 4. Low-grade temps. Patient had a temp of 99.6 this AM. Resolved likely related to atelectasis. Urinalysis negative. 5. Elevated Liver enzymes. AST 82, ALT 73. Are trending down. Possibly medication induced. At this time patient is still taking [place] 7.5 one to 2 tablets every 6 hours as needed for pain. Recommended that patient only takes 1 tablet. But she is reporting that she needs to help control her pain. We'll continue to monitor. Recommend that she has repeat LFTs checked in 1 week. AST at discharge is 58 ALT 73 Patient is medically stable for discharge. We'll have her follow-up with her PCP in 1 week I performed an examination of the patient and discussed their management with the physician Dimensional Integration Engineer. I have reviewed the Physician Dimensional Integration Engineer's notes and agree with the documented findings and plan of care
== END 2018-02-06 15:25 | disposition home health service (06) | DRG 470 ==
LOC: 2ORMAIN 11:25 → 3SUR 15:21
PROVIDERS: ADMIT Orthopaedic Surgery; ATTEND Orthopaedic Surgery
PROC: 0SRC0J9 Replacement of Right Knee Joint with Synthetic Substitute, Cemented, Open Approach (ICD-10-PCS; principal; 2018-02-03 13:00)
DX: M17.11 Unilateral primary osteoarthritis, right knee (principal); D62 Acute posthemorrhagic anemia; F32.9 Major depressive disorder, single episode, unspecified; G47.30 Sleep apnea, unspecified; Z79.899 Other long term (current) drug therapy; Z87.891 Personal history of nicotine dependence; Z96.642 Presence of left artificial hip joint; R42 Dizziness and giddiness
CPT/HCPCS: 80053; 81003; 85025; 87086; 88300

== ENCOUNTER → 2018-07-18 | Outpatient (CLI) | payer OTHER ==
--- NOTE | 2018-07-18 14:51 | MM ---
Reason for exam: additional evaluation requested from prior study. Last mammogram was performed 1 year and 2 months ago. History: Patient is postmenopausal. Took hormonal contraceptives beginning at age 18. Physical Findings: Nurse did not find any significant physical abnormalities on exam. MG 3D Diag Mammo W/Cad ABRAM Bilateral CC and MLO view(s) were taken. Prior study comparison: May 31, 2017, bilateral MG work up mamm w CAD BILAT. April 27, 2017, bilateral MG screening mammo w CAD. The breast tissue is heterogeneously dense. This may lower the sensitivity of mammography. Finding: There are grouped/clustered course calcifications in the anterior position 3cm from the nipple. New finding since May 31, 2017. These results were verbally communicated with the patient and result sheet given to the patient on 07/18/18. ASSESSMENT: Probably benign, BI-RAD 3 RECOMMENDATION: Follow-up diagnostic mammogram of the right breast in 6 months. (with magnification views)
== END | disposition home or self-care (01) ==
LOC: RADMAMWWP 13:26
PROVIDERS: ATTEND Family Medicine
DX: R92.0 Mammographic microcalcification found on diagnostic imaging of breast (principal)
CPT/HCPCS: 77066; G0279; 77062

== ENCOUNTER → 2022-06-04 | Outpatient (CLI) | payer BC ==
--- NOTE | 2022-06-04 12:09 | MR ---
EXAMINATION TYPE: MR shoulder RT wo con DATE OF EXAM: 06/04/2022 COMPARISON: Outside right shoulder x-ray April 25, 2022 HISTORY: Rt shoulder extreme pain for one year TECHNIQUE: Multiplanar, multisequence imaging of the right shoulder is performed without contrast. FINDINGS: Rotator Cuff: Increased signal throughout the supraspinatus tendon greatest involving the anterior fi bers where there is focal full-thickness retracted tear involving roughly anterior two third distal f ibers seen best on sagittal images. Some focal fluid at this level extends along the anterior aspect of the humeral head. Infraspinatus tendon is intact. Subscapularis tendon intact with surrounding flu id. Rotator cuff muscle bulk is preserved. Acromioclavicular Joint: Moderate capsular hypertrophy with mass effect along the underlying fat plan e. Mild spurring with moderate narrowing. Glenohumeral Joint: Moderate to large size joint effusion. Labrum: Superior labrum shows increased signal likely reflecting degenerative tearing. Biceps Tendon: The long head of biceps is in normal location within bicipital groove. Bone marrow signal: No focal abnormal marrow signal is appreciated. Other: No additional significant abnormality is appreciated. IMPRESSION: 1. Tendinosis and articular surface tearing of the supraspinatus tendon. 2. AC joint arthropathy with suggestion of underlying impingement. Correlate clinically.
== END | disposition home or self-care (01) ==
LOC: RADMRIMAIN 11:05
PROVIDERS: ATTEND Orthopaedic Surgery
DX: M75.111 Incomplete rotator cuff tear or rupture of right shoulder, not specified as traumatic (principal); M12.811 Other specific arthropathies, not elsewhere classified, right shoulder

== ENCOUNTER → 2024-11-23 | Outpatient (CLI) | payer MEDICARE ==
--- NOTE | 2024-11-25 10:00 | MM ---
Reason for Exam: Screening (asymptomatic). Last mammogram was performed 6 year(s) and 5 month(s) ago. Patient History: Menarche at age 12. First Full-Term at age 20. Postmenopausal. Patient has history of breast feeding. Hormonal Contraceptives, from age 18 until age 20. Risk Values: Terrie 5 year model risk: 1.5%. NCI Lifetime model risk: 5.6%. Prior Study Comparison: 04/27/2017 Bilateral Screening Mammogram, [facility]. 05/31/2017 Bilateral Diagnostic Mammogram, [facility]. 07/18/2018 Bilateral Diagnostic Mammogram, [facility]. Tissue Density: The breasts are heterogeneously dense, which may obscure small masses. Findings: Analyzed By CAD. Right breast: New focal asymmetries right breast upper-outer quadrant. * 6.7 cm from the nipple measuring 12 mm. * 9.0 cm from the nipple measuring 7 mm Left breast: There is no suspicious group of microcalcifications or new suspicious mass. Benign-appearing calcifications left breast. Overall Assessment: Incomplete: need additional imaging evaluation, BI-RAD 0 Management: Diagnostic Breast Ultrasound of the right breast. [facility] will attempt to contact patient to return for supplemental views and ultrasound if indicated. Patient should continue monthly self-breast exams. A clinical breast exam by your physician is recommended on an annual basis. This exam should not preclude additional follow-up of suspicious palpable abnormalities. Note on Terrie scores and lifetime risk: 1. A Terrie score greater than 3% is considered moderate risk. If this is the case, consider specialist referral to assess eligibility for a risk reducing agent. 2. If overall lifetime risk for the development of breast cancer is 20% or higher, the patient may qualify for future screening with alternating mammogram and breast MRI. [facility], , 11/24/2024 7:43 AM. Electronically signed and approved by: Iain Elizabeth DO
== END | disposition home or self-care (01) ==
LOC: RADMAMWWP 15:55
PROVIDERS: ATTEND Family Medicine
DX: Z12.31 Encounter for screening mammogram for malignant neoplasm of breast (principal); R92.333 Mammographic heterogeneous density, bilateral breasts; R92.1 Mammographic calcification found on diagnostic imaging of breast; Z78.0 Asymptomatic menopausal state; Z92.0 Personal history of contraception
CPT/HCPCS: 77063; 77067

== ENCOUNTER → 2024-11-27 | Outpatient (CLI) | payer MEDICARE ==
--- NOTE | 2024-11-27 13:40 | USB ---
Reason for Exam: Additional evaluation requested from abnormal screening. Patient History: Menarche at age 12. First Full-Term at age 20. Postmenopausal. Patient has history of breast feeding. Hormonal Contraceptives, from age 18 until age 20. Risk Values: Terrie 5 year model risk: 1.5%. NCI Lifetime model risk: 5.6%. Technique: Method: Targeted. Prior Study Comparison: 05/31/2017 Bilateral Diagnostic Mammogram, [facility]. 07/18/2018 Bilateral Diagnostic Mammogram, [facility]. 11/23/2024 Bilateral MG 3D screening mammo w/cad, [facility]. Findings: The upper outer quadrant of the right breast, the axilla of the right breast and the retroareolar of the right breast were scanned. Technique utilized:US breast workup limited RT Image; Ultrasound imaging of: Upper outer quadrant, retroareolar region and axilla. Scattered simple appearing cysts including 10:00 7 cm the nipple measuring 11 x 9 mm, 11:00 7 cm from the nipple measuring 15 x 7 mm and at the nipple measuring 8 x 7 mm. Few dilated ducts in the retroareolar region. No evidence for organizing fluid collection or mass. Overall Assessment: Benign, BI-RAD 2 Management: Screening Mammogram of both breasts in 1 year. A clinical breast exam by your physician is recommended on an annual basis and results should be correlated with mammographic findings. This exam should not preclude additional follow-up of suspicious palpable abnormalities. Results were given to the patient verbally at the time of exam. [facility], , 11/27/2024 1:36 PM. Electronically signed and approved by: Iain Elizabeth DO
== END | disposition home or self-care (01) ==
LOC: RADUSWWP 12:55
PROVIDERS: ATTEND Family Medicine
DX: R92.8 Other abnormal and inconclusive findings on diagnostic imaging of breast (principal); Z92.0 Personal history of contraception; Z78.0 Asymptomatic menopausal state

== ENCOUNTER → 2025-01-11 | Outpatient (CLI) | payer MEDICARE ==
--- NOTE | 2025-01-11 12:29 | MR ---
EXAMINATION TYPE: MR knee LT wo con DATE OF EXAM: 01/11/2025 11:09 AM COMPARISON: Outside radiograph 01/01/2025 CLINICAL INDICATION: Female, 64 years old with history of PAIN IN LEFT KNEE, Lt knee pain x 2 months TECHNIQUE: Multiplanar, multisequence imaging of the left knee is performed without IV contrast. FINDINGS: Generalized subcutaneous soft tissue swelling. The ACL and PCL are intact. There is prominent edema on either side of the otherwise intact MCL fibers. LCL complex is intact. Minimal inner margin fraying body of the lateral meniscus. Lateral compartment articular cartilage vo lume is maintained. There is an oblique tear involving the junction of the posterior horn and body of the medial meniscus . Moderate irregular cartilage loss mid weightbearing medial femoral condyle for an area measuring 4 mm wide and 9 mm AP. Patellofemoral compartment shows mild diffuse thinning of articular cartilage, more moderate diffuse thinning along the medial patellar facet. Extensor mechanism is intact. There is a [id number] knee joint effusion present. Small Ramesh's cyst measures 4.8 x 1.9 cm. Mild edema within the gastrocnemius musculature. Normal popliteal artery anatomy and muscle bulk. Some mild patchy red marrow is present and may be se en with anemia, obesity, smoking, chronic disease. IMPRESSION: 1. Grade 1 MCL sprain. 2. Oblique tear at the junction of the posterior horn and body of the medial meniscus. 3. Focal moderate irregular cartilage loss mid weightbearing aspect medial femoral condyle measuring 4 x 9 mm. 4. Mild to moderate overall patellofemoral compartmental OA with diffuse cartilage thinning. 5. Generalized subcutaneous soft tissue swelling. [id number] knee joint effusion. Small Ramesh' s cyst. 6. Mild patchy edema in the gastrocnemius musculature. Findings may be reactive due to altered biomec hanics or could reflect mild muscle strain. [facility], , 01/11/2025 12:27 PM
== END | disposition home or self-care (01) ==
LOC: RADMRIMAIN 10:02
PROVIDERS: ATTEND Orthopaedic Surgery
DX: S83.242A Other tear of medial meniscus, current injury, left knee, initial encounter (principal); M17.12 Unilateral primary osteoarthritis, left knee; S83.412A Sprain of medial collateral ligament of left knee, initial encounter; M25.462 Effusion, left knee; M71.22 Synovial cyst of popliteal space [Baker], left knee

== ENCOUNTER → 2025-02-09 | Outpatient (CLI) | payer MEDICARE ==
[2025-02-09 18:35] LABS: Basophils # (A) 0.06 X 10*3/uL (0.00-0.10); Basophils % (A) 0.7 %; Eosinophils # (A) 0.20 X 10*3/uL (0.04-0.35); Eosinophils % (A) 2.2 %; HCT 36.4 % (37.2-46.3); HGB 11.3 g/dL (12.0-15.0); Immature Grans, Automated 0.30 %; Lymphocytes # (A) 2.04 X 10*3/uL (0.90-5.00); Lymphocytes % (A) 22.2 %; MCH 26.9 pg (27.0-32.0); MCHC 31.0 g/dL (32.0-37.0); MCV 86.7 FL (80.0-97.0); Monocytes # (A) 0.78 X 10*3/uL (0.20-1.00); Monocytes % (A) 8.5 %; NRBC Per 100 WBC 0 X 10*3/uL (0.00-0.01); Neutrophils # (A) 6.06 X 10*3/uL (1.80-7.70); Neutrophils % (A) 66.1 %; Platelet Count 373 X 10*3/uL (140-440); RBC 4.20 X 10*6/uL (4.10-5.20); RDW 12.9 % (11.5-14.5); WBC 9.17 X 10*3/uL (4.50-10.00)
[2025-02-09 18:55] LABS: Anion Gap 12.1 mmol/L (4.00-12.00); Carbon Dioxide 22.9 mmol/L (21.6-31.8); Chloride 106.0 mmol/L (96-109); Potassium 4.4 mmol/L (3.5-5.5); Sodium 141.0 mmol/L (135-145)
== END | disposition home or self-care (01) ==
LOC: LABPAT 15:47
PROVIDERS: ATTEND Orthopaedic Surgery
DX: Z01.818 Encounter for other preprocedural examination (principal); M23.92 Unspecified internal derangement of left knee
CPT/HCPCS: 80051; 85025; 93005